=== PATIENT | female | born 1995 | race Caucasian/White ===

== ENCOUNTER 2018-10-26 20:09 | Emergency (ER) | payer SELFPAY, OTHER ==
[2018-10-26] MEDS: ONDANSETRON (ODT) 4 MG TAB ODT (23:30)
[2018-10-26] MEDS: DIPHENHYDRAMINE 50 MG INJ IM (23:31)
[2018-10-26] MEDS: KETOROLAC 30 MG INJ IM (23:31)
== END 2018-10-27 00:55 | disposition home or self-care (01) ==
LOC: FTE 10-27 00:55
DX: G44.209 Tension-type headache, unspecified, not intractable (principal); R40.2412 Glasgow coma scale score 13-15, at arrival to emergency department
CPT/HCPCS: 96372; 99284-25